=== PATIENT | male | born 1990 | race Caucasian/White ===

== ENCOUNTER 2019-10-17 02:26 | Emergency (ER) | payer SELFPAY ==
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
--- NOTE | 2019-10-17 02:31 | PC.NURSE ---
xray at bedside and images for pelvis/chest complaint. oxygen placed via nc due to dyspnea complaints. pt remains on monitor, sinus tach
--- NOTE | 2019-10-17 02:33 | PC.NURSE ---
confirmed transfer with dr herrera.
--- NOTE | 2019-10-17 02:37 | PC.NURSE ---
[facility] at bedside loading pt to stretcher. ivf's infusing. report called to [place]. sent transfer record and cd with patient. all belongings with gf
[2019-10-17 02:40] VITALS: BMI 27.8
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
[2019-10-17 02:41] VITALS: BP 141/94; BP 144/75; PULSE 101; PULSE 94; RESP 17; RESP 21; TEMP 36.7; O2SAT 100; O2SAT 97
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
[2019-11-10 14:47] LABS: POC Glucose,Bedside 107 (70-110)
== END 2019-10-17 02:42 | disposition short-term general hospital (02) ==
PROVIDERS: Emergency Provider Emergency Medicine
DX: S06.0X9A Concussion with loss of consciousness of unspecified duration, initial encounter (principal); S42.025A Nondisplaced fracture of shaft of left clavicle, initial encounter for closed fracture; V86.59XA Driver of other special all-terrain or other off-road motor vehicle injured in nontraffic accident, initial encounter; F10.929 Alcohol use, unspecified with intoxication, unspecified; F17.210 Nicotine dependence, cigarettes, uncomplicated
CPT/HCPCS: 71045; 72170; 82962; 96365; 96375; 99282; 99291